=== PATIENT | female | born 1950 | race Two or more races ===

== ENCOUNTER 2019-01-07 12:09 | Outpatient (CLI) | payer OTHER ==
[~2019-01-07 12:09] MED LIST: HYDROCHLOROTH12.5 M1 PO; PROTONIX20 MG PO; SYNTHROID75 MCG PO; ZIAC 2.5-6.251 EACH PO
== END 2019-01-07 12:26 | disposition home or self-care (01) ==
LOC: EKG 12:09 → LAB 12:09 → EKG 12:26
DX: J44.1 Chronic obstructive pulmonary disease with (acute) exacerbation (principal); I10 Essential (primary) hypertension

== ENCOUNTER 2019-01-14 12:40 | Inpatient (IN) | payer OTHER ==
[~2019-01-14] VITALS: Ht 149.9 cm; Wt 65.3 kg
[2019-01-30] MEDS ORDERED: AMOX1TAB5 PO (17:08)
== END 2019-02-01 12:08 | disposition home or self-care (01) | DRG 743 ==
LOC: OB/GYN 01-29 06:28 → O/R 01-29 06:28 → SURH 01-29 08:30 → OB/GYN 01-29 13:15
PROVIDERS: ADMIT Obstetrics & Gynecology
PROC: 0UT70ZZ Resection of Bilateral Fallopian Tubes, Open Approach (ICD-10-PCS; 2019-01-29)
PROC: 0UT20ZZ Resection of Bilateral Ovaries, Open Approach (ICD-10-PCS; principal; 2019-01-29 08:30)
DX: N95.0 Postmenopausal bleeding (principal); N72 Inflammatory disease of cervix uteri; N83.312 Acquired atrophy of left ovary; N83.311 Acquired atrophy of right ovary; I11.9 Hypertensive heart disease without heart failure; N85.8 Other specified noninflammatory disorders of uterus; N83.8 Other noninflammatory disorders of ovary, fallopian tube and broad ligament